=== PATIENT | female | born 1955 | race Caucasian/White ===

== ENCOUNTER 2017-01-02 22:31 | Emergency (ER) | payer OTHER ==
--- NOTE | 2017-01-02 23:20 | CT ---
CT BRAIN WITHOUT CONTRAST 01/02/17 HISTORY: Fell in bathroom. 3 cm laceration to the head. COMPARISON: CT brain 07/15/15. FINDINGS: There is a left forehead contusion. No acute territorial infarct or hemorrhage. No midline shift or mass effect. Ventricular size and extra-axial CSF spaces are similar. 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 This is similar to the comparison examination. The paranasal sinuses and mastoids are clear. The calvarium is intact. Surgical lillian from lacerat ion of the forearm is present. IMPRESSION: Forehead laceration and contusion without acute intracranial abnormality. No extra-axial hemorrhage. POS: [facility]
--- NOTE | 2017-01-02 23:28 | CT ---
CT CERVICAL SPINE WITHOUT CONTRAST 01/02/17 HISTORY: Fell in bathroom. 3 cm laceration to the head. COMPARISON: C-spine 07/15/15. 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 There is facet arthropathy throu ghout the cervical spine. No acute fracture or malalignment. There are dense calcifications of the c arotid bulbs bilaterally. There is some scarring in the left lung apex. IMPRESSION: 1. No acute fracture or malalignment cervical spine. 2. Dense calcifications of the carotid bulbs. A followup nonemergent ultrasound maybe necessary of the carotid arteries to evaluate for stenosis. POS: [facility]
== END 2017-01-03 00:30 | disposition home or self-care (01) ==
LOC: NAV ERS 22:31
DX: S01.01XA Laceration without foreign body of scalp, initial encounter (principal); F41.9 Anxiety disorder, unspecified; F32.9 Major depressive disorder, single episode, unspecified; Z79.899 Other long term (current) drug therapy; W17.89XA Other fall from one level to another, initial encounter
CPT/HCPCS: 12002; 70450; 72125

== ENCOUNTER 2017-01-14 10:46 | Emergency (ER) | payer OTHER, SELFPAY | END 2017-01-14 11:16 | disposition home or self-care (01) | LOC: NAV ERS 10:46 | DX: S01.01XD Laceration without foreign body of scalp, subsequent encounter (principal); D69.6 Thrombocytopenia, unspecified; F32.9 Major depressive disorder, single episode, unspecified; F41.9 Anxiety disorder, unspecified; Z79.899 Other long term (current) drug therapy; X58.XXXD Exposure to other specified factors, subsequent encounter ==